=== PATIENT | female | born 1970 | race Caucasian/White ===

== ENCOUNTER 2024-05-22 12:00 | Day surgery (SDC) | payer MEDICAID, SELFPAY ==
--- NOTE | 2024-05-21 05:00 | EKG_ITS ---
[facility] Test Date: 2024-05-21 Pat Name: REED ORELLANA Department: Room: - Gender: Female [employer]: [facility] : 1970 Requested By: Sonia Dawson Order Number: [id number] Reading MD: Sonia Dawson Measurements Intervals [place] Rate: 63 P: 66 FL: 150 QRS: 66 QRSD: 93 T: 78 QT: 394 QTc: 405 Interpretive Statements SINUS RHYTHM WITH OCCASIONAL VENTRICULAR PREMATURE COMPLEXES POSSIBLE LEFT ATRIAL ENLARGEMENT [-0.1mV P WAVE IN V1/V2] NONSPECIFIC T-WAVE ABNORMALITY Compared to ECG 07/05/2023 21:30:02 Ventricular premature complex(es) now present T-wave abnormality still present /store/S0/[id number]
[2024-05-21 11:06] LABS: HCG Qualitative,Urine Negative
[2024-05-21 11:18] LABS: Alanine Aminotransferase 14 U/L (10-49); Albumin, Serum 4.9 gm/dL (3.5-5.0); Albumin/Globulin Ratio 2.3 (1.2-2.2); Alkaline Phosphatase 85 U/L (46-116); Anion Gap 9 (7-16); Aspartate Amino Transferase 15 U/L (0-34); BUN/Creatinine Ratio 17 Ratio (12-20); Bilirubin,Total 0.4 mg/dL (0.3-1.2); Blood Urea Nitrogen 10 mg/dL (9-23); Calcium 9.5 mg/dL (8.3-10.6); Calcium (Corrected) 9.5 mg/dL (8.5-10.1); Carbon Dioxide 25.6 mMol/L (20.0-31.0); Chloride 109 mMol/L (98-107); Creatinine (Component) 0.6 mg/dL (0.6-1.3); Globulin 2.1 gm/dL (2.3-3.5); Glucose 85 mg/dL (74-106); Osmolality,Calculated 284 (275-295); Potassium 3.9 mMol/L (3.4-5.1); Sodium 144 mMol/L (136-145); eGFR > 60 See Note
[2024-05-22 12:21] VITALS: BP 155/87; PULSE 63; RESP 10; TEMP 36.2; O2SAT 93; BMI 34.7
[2024-05-22 12:42] VITALS: BP 174/98; PULSE 68; RESP 20; O2SAT 95
[2024-05-22 13:15] VITALS: BP 149/85; PULSE 77; RESP 11; TEMP 36.8; O2SAT 95
[2024-05-22 13:25] VITALS: BP 159/93; PULSE 61; RESP 21; O2SAT 95
[2024-05-22 13:35] VITALS: BP 166/93; PULSE 63; RESP 19; O2SAT 97
[2024-05-22 13:45] VITALS: BP 171/91; PULSE 60; RESP 15; O2SAT 97
== END 2024-05-22 14:20 | disposition home or self-care (01) ==
PROVIDERS: PCP Physician Assistant; Referring Provider Surgery; Visit Provider Surgery
PROC: 0DBE8ZX Excision of Large Intestine, Via Natural or Artificial Opening Endoscopic, Diagnostic (ICD-10-PCS; CPT 45380; principal; 2024-05-22 14:30)
DX: Z12.11 Encounter for screening for malignant neoplasm of colon (principal); Z86.0101 Personal history of adenomatous and serrated colon polyps; A63.0 Anogenital (venereal) warts; D12.2 Benign neoplasm of ascending colon; D12.3 Benign neoplasm of transverse colon; D12.8 Benign neoplasm of rectum; K64.8 Other hemorrhoids; Z01.810 Encounter for preprocedural cardiovascular examination
CPT/HCPCS: 45385; 45380; 36415; 80053; 81025; 93005; A4649

== ENCOUNTER 2024-06-04 11:08 | Outpatient (AMB) | payer MEDICAID, SELFPAY ==
[2024-06-04 11:16] VITALS: BP 126/80; PULSE 58; RESP 19; TEMP 36.5; O2SAT 95; BMI 35.6
--- NOTE | 2024-06-04 11:16 | GSCOFFNT_ITS ---
Vital Signs - [facility] 06/04/24 11:16 Height 1.73 m Height Method Stated Weight 106.708 kg Weight Measurement Method Standing Scale BMI 35.6 BP 126/80 Blood Pressure Source Automatic Cuff Blood Pressure Location Left Upper Arm Position Sitting Respiration 19 Pulse 58 L Pulse Source Monitor Temp 97.7 F Temp Source Temporal Artery Scan Pulse Oximetry (%) 95 Oxygen Delivery Method Room Air Med/Allergies Allergies & Medications Allergies codeine Allergy (Intermediate, Verified 06/04/24 11:16) Nausea Medication Reconciliation amlodipine 10 mg tablet 10 mg PO QDAY 09/12/23 [History Confirmed 06/04/24] atorvastatin 40 mg tablet 40 mg PO QDAY 09/12/23 [History Confirmed 06/04/24] buspirone 15 mg tablet 7.5 mg PO BID 09/12/23 [History Confirmed 06/04/24] dupilumab 300 mg/2 mL subcutaneous pen injector (Useful at [employer])) See Rx Instructions .Route .COMPLEX 09/12/23 [History Confirmed 06/04/24] MA Intake Visit Data Collection New Patient or Established: Established Patient (seen at [facility] within 3 years) Seen by Clinical Staff ONLY (RN/MA): No Reason for Visit:: COLONOSCOPY RESULTS Pain Present Currently: No PCP or OBGYN visit in last 3 months: Yes Hx Now: No Do You Feel Safe at Home: Yes Authorities Contacted: N/A Smoking Status Smoking Status: Current every day smoker Cessation Counseling Provided: REED was advised that quitting smoking is the single most important factor to protect the health of themselves and their family. Discussed the benefits of quitting smoking with patient. Encouraged patient to quit smoking and provided Cessation assistance materials and resources. Tobacco Use: Cigarette Years smoked: 40 Are you interested in quitting?: No Immunization / Flu Flu Vaccine in the Last 12 Months: No Flu Vaccine Exclusion Criteria: Refused by Patient Past Medical History Past Medical History NEUROLOGIC: Positive Neurological Disorders and Peripheral Neuropathy; Negative Seizures CARDIAC: Positive Cardiac Disorders, Hypercholesterolemia, Edema (hereditary angioedema) and Hypertension; Negative Congestive Heart Failure RESPIRATORY: Negative Chronic Obstructive Pulmonary Disease (COPD) GASTROINTESTINAL: Positive Gastrointestinal Disorders, Hemorrhoids and Gastroesophageal Reflux Disease GENITOURINARY: Positive Genitourinary Disorders and Kidney Stones; Negative Renal Disease MUSCULOSKELETAL: Positive Carpal Tunnel Syndrome (LEFT) ENDOCRINE: Positive Endocrine Disorders (hashimotos, border line dm); Negative Diabetes Mellitus Type 1 or Diabetes Mellitus Type 2 HEMATOLOGIC: Negative Blood Disorders OTHER HISTORY: Positive Chicken Pox; Negative Autoimmune Disease, Blood Transfusions, Anesthesia Reactions or Cancer Social History SMOKING STATUS: Smoking status: Current every day smoker ALCOHOL: Alcohol Intake: Never HOUSING: Housing: House HPI HPI Narrative 54F with HTN, HLD, GERD, obesity and history of angioedema in 2018 referred for +FOBT and family history of colon CA s/p diagnostic colonoscopy 09/13/23 with findings of multiple polyps, now s/p repeat surveillance colonoscopy with findings of traditional serrated adenoma x2. Pt reports feeling well overall with no complaints ROS Review of Systems Systems Reviewed: All systems reviewed, normal except as documented Objective/Exam General General Appearance: alert, cooperative and well groomed Resp Respiratory exam: Absent respiratory distress Results Colonoscopy report, pathology reviewed Assessment & Plan Diagnosis / Problem List (1) Encounter to discuss colonoscopy results: Status: Acute Assessment & Plan: 54F with history of multiple polyps now s/p repeat colonoscopy with findings of traditional serrated adenoma, recovering well Plan: Repeat colonoscopy in 1 year Office Procedures GNS Level of Care Nursing/Assessment Patient Status: Established Patient Nursing Assessment/Reassesment: Medication Reconciliation, Update PMH in EMR and Vital Signs Coordination of Care: Complex Care and Chronic Disease 1-5, Consent,records obtained, informed consent, Education Simp Pt/Fam, Results/Orders obtained and Staff clarify orders Established Patient Charge Established Patient Point Assignment: 90 Established Patient Point Charge: EP Level 3 (80-115) Patient Portal Questionaires Social History Living Situation History Housing: House Tobacco History Smoking Status: Current every day smoker Alcohol History Alcohol Intake: Never Domestic Abuse History Do You Feel Safe at Home: Yes Review of Systems Report any current symptoms Only answer those that you have currently: Past Medical History Past Medical History Have you ever been diagnosed with any of the following: Neurological Problems Seizures: No Peripheral Neuropathy: Yes Cardiology Problems Hypercholesterolemia: Yes Congestive Heart Failure: No Edema: Yes (hereditary angioedema) Hypertension: Yes Respiratory Problems Chronic Obstructive Pulmonary Disease (COPD): No Stomache/Intestinal Problems Hemorrhoids: Yes Gastroesophageal Reflux Disease: Yes Genital/Urinary Problems Renal Disease: No Kidney Stones: Yes Musculoskeletal Problems Carpal Tunnel Syndrome: Yes (LEFT) Endocrine Problems Diabetes Mellitus Type 1: No Diabetes Mellitus Type 2: No Other Problems Autoimmune Disease: No Blood Transfusions: No Anesthesia Reactions: No Chicken Pox: Yes Cancer: No
== END 2024-06-04 11:38 | disposition home or self-care (01) ==
LOC: HODSRG 11:08
PROVIDERS: PCP Family Medicine; Referring Provider Family Medicine; Supervising Provider Surgery; Visit Provider Surgery
DX: Z71.2 Person consulting for explanation of examination or test findings (principal); D12.6 Benign neoplasm of colon, unspecified; I10 Essential (primary) hypertension; E78.5 Hyperlipidemia, unspecified; K21.9 Gastro-esophageal reflux disease without esophagitis; Z80.0 Family history of malignant neoplasm of digestive organs; E66.9 Obesity, unspecified; Z68.35 Body mass index [BMI] 35.0-35.9, adult
CPT/HCPCS: 99213; G0463